=== PATIENT | female | born 1940 | race Caucasian/White ===

== ENCOUNTER → 2018-07-02 | Emergency (ER) | payer MEDICARE ==
[~2018-07-02] VITALS: Ht 162.6 cm; Wt 74.5 kg
[~2018-07-02] MED LIST: LEVA1.2527 NEB; levalbuterol 0.63mg/3ml nebule IH ONE; methylPREDNISolone sod succ 125mg/2ml vial IV ONE
[2018-07-02 12:11] LABS: ABG BASE EXCESS 12.4 mmol/L (-2.0-3.0); ABG HCO3 38.1 mmol/L (22.0-26.0); ABG OXYGEN SATURATION 97.3 % (95-98); ABG PH (T) 7.466 (7.350-7.450); ABG PO2 (T) 92.9 mmHg (83-108); ALLEN'S TEST Positive; FCOHb 0.3 % (0.5-1.5); FLOW 3 L/min; FMetHb 0.1 % (0.3-1.12); FO2Hb 96.9 % (94-100); TOTAL HEMOGLOBIN 12.1 G/dl (12.0-16.0)
[2018-07-02 12:31] LABS: BASOPHILS % (AUTO) 0 % (0-1); EOSINOPHILS # (AUTO) 0.1 X10'3 (0-0.9); EOSINOPHILS % (AUTO) 1.2 % (0-6); HEMATOCRIT 35.2 % (35.0-45.0); HEMOGLOBIN 11.8 g/dl (12.0-16.0); LYMPHOCYTES # (AUTO) 0.4 X10'3 (1.1-4.8); LYMPHOCYTES % (AUTO) 5.3 % (21-51); MEAN CORPUSCULAR HEMOGLOBIN 29.8 PG (27.0-31.0); MEAN CORPUSCULAR HGB CONC 33.7 % (33.0-36.5); MEAN CORPUSCULAR VOLUME 88.4 FL (78-98); MEAN PLATELET VOLUME 8.8 FL (7.4-10.4); MONOCYTES # (AUTO) 0.1 X10'3 (0-0.9); MONOCYTES % (AUTO) 1.4 % (2-12); NEUTROPHILS # (AUTO) 7.8 X10'3 (1.8-7.7); NEUTROPHILS % (AUTO) 92.1 % (42-75); PLATELET COUNT 200 X10'3 (140-440); RED BLOOD COUNT 3.98 X10'6 (4.20-5.60); RED CELL DISTRIBUTION WIDTH 15.4 % (11.5-14.5); WHITE BLOOD COUNT 8.4 X10'3 (4.5-11.0)
[2018-07-02 12:50] LABS: PARTIAL THROMBOPLASTIN TIME 23 SECONDS (22-32); PROTHROMBIN TIME 10.3 SECONDS (9.0-12.0)
[2018-07-02 12:58] LABS: ALANINE AMINOTRANSFERASE 24 U/L (12-78); ALBUMIN 3.4 G/DL (3.4-5.0); ALKALINE PHOSPHATASE 65 IU/L (46-116); ANION GAP 6 (8-16); ASPARTATE AMINO TRANSFERASE 15 U/L (10-37); BILIRUBIN,TOTAL 0.4 MG/DL (0.1-1.0); BLOOD UREA NITROGEN 19 MG/DL (7-18); BUN/CREATININE RATIO 25.3 (6.6-38.0); CALCIUM 9.2 MG/DL (8.5-10.1); CHLORIDE 102 MMOL/L (99-107); CREATININE 0.75 MG/DL (0.40-0.90); GLUCOSE 135 MG/DL (70-104); POTASSIUM 3.8 MMOL/L (3.5-5.1); SODIUM 143 MMOL/L (135-145); TOTAL PROTEIN 6.7 G/DL (6.4-8.2); eGFR 74 ML/MIN
--- NOTE | 2018-07-02 13:45 | NUR ---
PATIENT WALKED 50 FT WITH WALKER ON 3 L N/C SAT CAME DOWN TO 91% PA PHI NOTIFIED
[2018-07-02 14:38] VITALS: BP 141/77
== END | disposition home or self-care (01) ==
LOC: ER 11:28
DX: J44.1 Chronic obstructive pulmonary disease with (acute) exacerbation (principal); R06.89 Other abnormalities of breathing; F17.200 Nicotine dependence, unspecified, uncomplicated; Z88.2 Allergy status to sulfonamides; Z79.899 Other long term (current) drug therapy; Z99.81 Dependence on supplemental oxygen
CPT/HCPCS: 36415; 36600; 71045; 80053; 82803; 83605; 83880; 84484; 85018; 85025; 85610; 85730; 87040; 93005; 94640; 94760; 99284; J2930; J7614

== ENCOUNTER 2018-08-12 22:04 | Inpatient (IN) | payer MEDICARE | END 2018-08-16 18:30 | LOC: ER 22:04 → ED HOLD 08-13 00:12 → SUR 3N 08-13 01:30 → PCU 3S 08-13 14:25 | DX: J18.1 Lobar pneumonia, unspecified organism (principal); J96.11 Chronic respiratory failure with hypoxia ==